=== PATIENT | female | born 1995 | race Caucasian/White ===

== ENCOUNTER 2020-11-26 06:17 | Day surgery (SDC) | payer OTHER ==
[~2020-11-26] VITALS: Ht 162.6 cm; Wt 51.0 kg
[2020-11-26] MEDS ORDERED: PREN1TAB10 PO (06:50)
[2020-11-26 06:51] VITALS: BP 108/73
[2020-11-26 06:52] LABS: BASOPHILS % (AUTO) 1 % (0-1); EOSINOPHILS % (AUTO) 0 % (1-7); LYMPHOCYTES % (AUTO) 19 % (22-44); MD NO; MEAN CORPUSCULAR HEMOGLOBIN 30.4 pg (27.0-34.8); MEAN CORPUSCULAR HGB CONC 34.2 g/dL (32.4-35.8); MEAN PLATELET VOLUME 7.3 fL (7.4-10.4); MONOCYTES % (AUTO) 5 % (2-9); NEUTROPHILS % (AUTO) 75 % (42-75); PLATELET COUNT 204 x10^3/uL (130-400); RED BLOOD COUNT 4.56 x10^6/uL (3.82-5.3); RED CELL DISTRIBUTION WIDTH 14.2 % (9.6-15.2)
[2020-11-26] MEDS ORDERED: MIDAZOLAM 1 MG/ML, 2ML ONE (06:59)
[2020-11-26] MEDS ORDERED: FENTANYL PF 250 MCG/5ML ONE (06:59)
[2020-11-26] MEDS ORDERED: DEXAMETHASONE 4 MG/ML, 1ML ONE (07:00)
[2020-11-26] MEDS ORDERED: PROPOFOL 10 MG/ML, 20ML ONE (07:00)
[2020-11-26] MEDS ORDERED: LIDOCAINE-MPF 1%, 2ML INFIL ONE (07:00)
[2020-11-26] MEDS ORDERED: CEFAZOLIN 1,000 MG ONE (07:00)
[2020-11-26] MEDS ORDERED: CHLORHEXIDINE 15 ML UDC PO ONE (07:00)
[2020-11-26] MEDS ORDERED: ONDANSETRON 2MG/ML, 2ML ONE ×2 (07:00→07:18)
[2020-11-26] MEDS ORDERED: LACTATED RINGERS 1,000 ML IV SCH (07:00)
[2020-11-26] MEDS ORDERED: KETOROLAC 30 MG/1 ML ONE (07:00)
[2020-11-26] MEDS ORDERED: SCOPOLAMINE 1MG PATCH TD STA (07:17)
[2020-11-26] MEDS ORDERED: SCOPOLAMINE 1MG PATCH TD ONE (07:18)
[2020-11-26] MEDS ORDERED: ONDANSETRON 2MG/ML, 2ML IVPush ONE (07:30)
[2020-11-26] MEDS ORDERED: SILVER NITRATE STICK TP ONE (07:40)
[2020-11-26] MEDS ORDERED: OXYTOCIN 10 UNITS/ML, 1ML ONE (07:40)
[2020-11-26] MEDS ORDERED: METHYLERGONOVINE 0.2 MG/ML IM ONE (07:40)
[2020-11-26] MEDS ORDERED: MISOPROSTOL 200 MCG TABLET ONE (07:46)
[2020-11-26] MEDS ORDERED: PROMETHAZINE 25 MG/ML, 1ML IVPush PRN (08:00)
[2020-11-26] MEDS ORDERED: ACETAMINOPHEN 325 MG TABLET PO PRN (08:00)
[2020-11-26] MEDS ORDERED: HYDROmorphone 1 MG/ML, 1ML INJ IVPush PRN (08:00)
[2020-11-26] MEDS ORDERED: FENTANYL PF 100 MCG/2ML IV PRN (08:00)
[2020-11-26] MEDS ORDERED: hydrALAzine 20 MG/ML, 1ML IV PRN (08:00)
[2020-11-26] MEDS ORDERED: LABETALOL 5MG/ML, 20ML IV PRN (08:00)
[2020-11-26] MEDS ORDERED: HALOPERIDOL 5 MG/ML IV PRN (08:00)
[2020-11-26] MEDS ORDERED: morphine SULFATE 10 MG/ML, 1ML IVPush PRN (08:00)
[2020-11-26] MEDS ORDERED: MEPERIDINE/PF 25MG/0.5ML IVPush PRN (08:00)
[2020-11-26] MEDS ORDERED: OXYcodone 5 MG/5 ML ORAL.SOL UDC PO PRN (08:00)
[2020-11-26] MEDS ORDERED: DOXYCYCLINE 100 MG VIAL ONE (08:10)
== END 2020-11-26 11:25 | disposition home or self-care (01) ==
LOC: OUT 06:17
PROVIDERS: ATTEND Obstetrics & Gynecology
DX: O02.1 Missed abortion (principal); Z20.822 Contact with and (suspected) exposure to COVID-19
CPT/HCPCS: 36415; 59820; 85025; 86850; 86900; 88305; J0690; J1100; J1885; J2210; J2250; J2405; J2704; J3010; J7120; U0003; U0005; J2590